=== PATIENT | male | born 1935 | race Caucasian/White ===

== ENCOUNTER → 2017-11-22 09:42 | Outpatient (CLI) | payer OTHER, SELFPAY ==
--- NOTE | 2017-11-22 | DI.US.S_ITS ---
PROCEDURE: US RENAL COMPLETE INDICATIONS: Chronic kidney disease stage III TECHNIQUE: Real-time scanning was performed of the kidneys and bladder, with image documentation. COMPARISON: [facility], , RENAL COMPLETE, 10/24/2013, 15:10. FINDINGS: Kidneys: Kidneys are normal in size. Right kidney measures 11.2 cm long; left kidney measures 11.6 cm long. Right renal cortical thickness is 1.5 cm; left renal cortical thickness is 1.7 cm. Renal cortical echotexture is increased bilaterally. No hydronephrosis or nephrolithiasis. No suspicious solid mass lesions. Superior pole left renal cyst present measuring 23 mm Bladder: Pre-void bladder volume is 286 mL. Post-void residual is 15 mL. Pre-void images demonstrate no intraluminal masses or stones. On pre-void images, bilateral ureteral jets are noted with color Doppler interrogation. (Of note, ureteral jets may not be detectable in up to 25% of cases due to insufficient differences in specific gravity between ureteral and bladder urine). Miscellaneous: No free pelvic fluid. IMPRESSION: Increase in renal cortical echogenicity bilaterally suggesting medical renal disease. Dictated by: Chung VILLASENOR Interpreted: Chava Fuller MD on 11/22/2017 at 13:16 Approved by: Chava Fuller M.D. on 11/22/2017 at 15:53
== END ==
PROVIDERS: Visit Provider Student in an Organized Health Care Education/Training Program
DX: N18.3 Chronic kidney disease, stage 3 (moderate) (principal)
CPT/HCPCS: 76770

== ENCOUNTER → 2017-11-30 15:17 | Outpatient (REF) | payer OTHER, SELFPAY ==
[2017-11-30 15:46] LABS: HEMOLYSIS < 15 (0-50); Hematocrit 33.7 % (41-53); Hemoglobin 11.1 g/dL (13.5-17.5); Iron 84 ug/dL (49-181)
[2017-11-30 15:47] LABS: Blood Urea Nitrogen 84 mg/dL (9-20); Calcium 8.8 mg/dL (8.4-10.2); Carbon Dioxide 16 mmol/L (22-32); Chloride 113 mmol/L (98-107); Estimated Glomerular Filt Rate 30.5 mL/min (>60); Glucose 117 mg/dL (80-110); HEMOLYSIS < 15 (0-50); Potassium 4.7 mmol/L (3.4-5.1); Sodium 142 mmol/L (137-145)
[2017-11-30 15:56] LABS: Percent Iron Saturation 25 % (20-50); Total Iron Binding Capacity 336 ug/dL (261-462); Transferrin 250 mg/dL (206-381)
== END ==
LOC: LAB 15:17
PROVIDERS: Visit Provider Student in an Organized Health Care Education/Training Program
DX: N05.9 Unspecified nephritic syndrome with unspecified morphologic changes (principal); I50.32 Chronic diastolic (congestive) heart failure; D60.0 Chronic acquired pure red cell aplasia; D50.0 Iron deficiency anemia secondary to blood loss (chronic); D64.9 Anemia, unspecified; R80.9 Proteinuria, unspecified
CPT/HCPCS: 80048; 82728; 83540; 83550; 83880; 85014; 85018

== ENCOUNTER → 2017-12-09 14:39 | Outpatient (REF) | payer OTHER, SELFPAY ==
[2017-12-09 14:52] LABS: Hematocrit 32.8 % (41-53); Hemoglobin 10.9 g/dL (13.5-17.5)
[2017-12-09 15:10] LABS: Iron 55 ug/dL (49-181)
[2017-12-09 15:12] LABS: BUN Creatinine Ratio 30.9 (6-22); Blood Urea Nitrogen 71 mg/dL (9-20); Calcium 9.2 mg/dL (8.4-10.2); Carbon Dioxide 18 mmol/L (22-32); Chloride 112 mmol/L (98-107); Estimated Glomerular Filt Rate 27.5 mL/min (>60); Glucose 101 mg/dL (80-110); HEMOLYSIS < 15 (0-50); Potassium 4.7 mmol/L (3.4-5.1); Sodium 142 mmol/L (137-145)
[2017-12-09 15:21] LABS: Total Iron Binding Capacity 354 ug/dL (261-462)
== END ==
LOC: LAB 14:39
PROVIDERS: Visit Provider Internal Medicine
DX: D50.0 Iron deficiency anemia secondary to blood loss (chronic) (principal); I50.32 Chronic diastolic (congestive) heart failure; D64.9 Anemia, unspecified; N05.9 Unspecified nephritic syndrome with unspecified morphologic changes
CPT/HCPCS: 80048; 82728; 83540; 83550; 83880; 85014; 85018

== ENCOUNTER → 2018-05-27 11:57 | Outpatient (CLI) | payer OTHER, SELFPAY ==
--- NOTE | 2018-05-27 | DI.RAD.S_ITS ---
PROCEDURE: XR CHEST 2V INDICATIONS: DYSPNEA TECHNIQUE: 2 views of the chest were acquired. COMPARISON: None. FINDINGS: Surgical changes and devices: None. Lungs and pleura: No pleural effusions or pneumothorax. Lungs are clear. Mediastinum: Mediastinal contours are normal. Heart size is normal. Bones and chest wall: No suspicious bony abnormalities. Soft tissues appear unremarkable. IMPRESSION: No acute cardiopulmonary pathology. Dictated by: Stalin Mcpherson M.D. on 05/27/2018 at 14:12 Approved by: Stalin Mcpherson M.D. on 05/27/2018 at 14:12
== END ==
PROVIDERS: PCP Internal Medicine; Visit Provider Internal Medicine
DX: R06.00 Dyspnea, unspecified (principal)
CPT/HCPCS: 71046